=== PATIENT | female | born 1990 | race African-American/Black ===

== ENCOUNTER 2018-02-20 07:40 | Emergency (ER) | payer OTHER ==
[~2018-02-20] VITALS: Ht 157.5 cm; Wt 90.0 kg
[~2018-02-20 07:40] MED LIST: AMOXICILLIN500 MG OR; CLARITIN10 M2 OR; NO MEDS; TRIMOX500 MG PO
[2018-02-20 08:12] LABS: URINE BILIRUBIN - DIPSTICK NEGATIVE (NEGATIVE); URINE BLOOD DIPSTICK NEGATIVE (NEGATIVE); URINE COLOR YELLOW; URINE GLUCOSE - DIPSTICK NEGATIVE (NEGATIVE); URINE KETONE NEGATIVE (NEGATIVE); URINE LEUK ESTERASE NEGATIVE (NEGATIVE); URINE NITRITE - DIPSTICK NEGATIVE (Negative); URINE PROTEIN - DIPSTICK TRACE mg/dL (NEG-TRACE); URINE SPECIFIC GRAVITY >=1.030; URINE UROBILINOGEN - DIPSTICK 0.2 E.U./dL (0.2)
[2018-02-20 08:14] LABS: URINE CLARITY CLEAR
[2018-02-20 08:15] LABS: HEMATOCRIT 40.2 % (37.0-47.0); HEMOGLOBIN 12.8 g/dl (12.0-16.0); IMMATURE GRANULOCYTES 0.2 % (0.0-1.0); MEAN CELL VOLUME 82.9 fL CALC (80.0-100.0); MEAN CORPUSCULAR HGB 26.4 pG CALC (26.0-32.0); MEAN CORPUSCULAR HGB CONC 31.8 g/L CALC (32.0-36.0); NEUT# 1.98 thou/uL (2.00-7.15); RED BLOOD COUNT 4.85 mill/uL (4.20-5.60); RED CELL DISTRI WIDTH 13.9 % (11.5-15.5)
[2018-02-20 08:25] LABS: ALBUMIN 3.9 g/dL (3.2-5.0); ALKALINE PHOSPHATASE 57 u/l (38-126); ANION GAP 15 (6-22 (CALC)); BILIRUBIN, TOTAL 0.3 mg/dL (0.0-1.4); BUN 13 mg/dL (7-17); BUN/CREATININE RATIO 22 (12-20 (CALC)); CARBON DIOXIDE 23 mmol/l (22-30); CHLORIDE 108 mmol/l (95-108); CREATININE 0.6 mg/dL (0.5-1.0); GFR > 60 ML/MIN (>=60 (CALC)); GFR FOR AFR.AMER. > 60 ML/MIN (>=60 (CALC)); POTASSIUM 3.8 mmol/l (3.5-5.1); SGOT/AST 25 u/l (14-36); SGPT/ALT 33 u/l (9-52); SODIUM 142 mmol/l (137-146); TOTAL PROTEIN 7.1 g/dL (6.3-8.2)
[2018-02-20] MEDS ORDERED: LOMOTIL2.5 MG PO (08:38)
[2018-02-20] MEDS ORDERED: ZOFRAN4 MG/TAB PO (08:38)
[2018-02-20 09:25] VITALS: BP 122/71
== END 2018-02-20 09:33 | disposition home or self-care (01) | DRG 392 ==
LOC: ED 07:40
PROVIDERS: Emergency Medicine
DX: K52.9 Noninfective gastroenteritis and colitis, unspecified (principal); R10.9 Unspecified abdominal pain; R19.7 Diarrhea, unspecified; R11.2 Nausea with vomiting, unspecified

== ENCOUNTER 2018-09-22 17:45 | Emergency (ER) | payer SELFPAY ==
[~2018-09-22] VITALS: Ht 154.9 cm; Wt 84.1 kg
[~2018-09-22 17:45] MED LIST changes: +LOMOTIL2.5 MG PO; +ZOFRAN4 MG/TAB PO
[2018-09-22 20:29] LABS: URINE BILIRUBIN - DIPSTICK NEGATIVE (NEGATIVE); URINE BLOOD DIPSTICK LARGE (NEGATIVE); URINE CLARITY CLEAR; URINE COLOR YELLOW; URINE GLUCOSE - DIPSTICK NEGATIVE (NEGATIVE); URINE KETONE 15 mg/dL (NEGATIVE); URINE LEUK ESTERASE TRACE (Negative); URINE NITRITE - DIPSTICK NEGATIVE (Negative); URINE PROTEIN - DIPSTICK NEGATIVE (NEG-TRACE); URINE RBC TNTC RBC/hpf (0-5); URINE SPECIFIC GRAVITY >=1.030; URINE SQUAMOUS EPITHELIAL CELL FEW EPI/hpf (0-FEW); URINE UROBILINOGEN - DIPSTICK 0.2 E.U./dL (0.2)
[2018-09-22] MEDS ORDERED: AMOXICILLIN500 MG PO (21:38)
[2018-09-22 23:01] VITALS: BP 130/73
== END 2018-09-22 23:02 | disposition home or self-care (01) | DRG 153 ==
LOC: ED 17:45
PROVIDERS: Emergency Medicine
DX: J03.90 Acute tonsillitis, unspecified (principal); N39.0 Urinary tract infection, site not specified

== ENCOUNTER 2019-04-19 13:18 | Emergency (ER) | payer SELFPAY ==
[~2019-04-19] VITALS: Ht 154.9 cm; Wt 87.0 kg
[~2019-04-19 13:18] MED LIST changes: +AMOXICILLIN500 MG PO
[2019-04-19] MEDS ORDERED: AMOXICILLIN875 MG PO (13:47)
[2019-04-19 14:05] VITALS: BP 121/79
== END 2019-04-19 14:05 | disposition home or self-care (01) | DRG 153 ==
LOC: ED 13:18
DX: J02.9 Acute pharyngitis, unspecified (principal); R59.1 Generalized enlarged lymph nodes

== ENCOUNTER 2022-05-10 16:11 | Emergency (ER) | payer MEDICAID ==
[2022-05-10] VITALS (8 sets, daily range): BP systolic 129–170; BP diastolic 80–105
[~2022-05-10] VITALS: Ht 154.9 cm; Wt 86.0 kg
[~2022-05-10 16:11] MED LIST changes: +AMOXICILLIN875 MG PO
[2022-05-10] MEDS ORDERED: KEFLEX500 MG PO (18:33)
== END 2022-05-10 18:52 | disposition home or self-care (01) ==
LOC: ED 16:11
DX: J02.9 Acute pharyngitis, unspecified (principal)

== ENCOUNTER 2023-04-06 08:51 | Emergency (ER) | payer SELFPAY ==
[~2023-04-06] VITALS: Ht 154.9 cm; Wt 85.0 kg
[2023-04-06] VITALS (14 sets, daily range): BP systolic 132–156; BP diastolic 96–117
[~2023-04-06 08:51] MED LIST changes: +ACYCLOVIR400 MG PO; +HYDROCHLOROT25 MG PO; +KEFLEX500 MG PO
== END 2023-04-06 11:38 | disposition home or self-care (01) | DRG 125 ==
LOC: ED 08:51
DX: H10.33 Unspecified acute conjunctivitis, bilateral (principal); I10 Essential (primary) hypertension

== ENCOUNTER 2024-04-05 20:02 | Emergency (ER) | payer OTHER ==
[~2024-04-05] VITALS: Ht 154.9 cm; Wt 88.0 kg
[~2024-04-05 20:02] MED LIST changes: +FLEXERIL5 M1 PO; +K-TAB20 MEQ PO; +MACROBID100 M1 PO; +MOTRIN400 MG/TAB PO
[2024-04-05] MEDS ORDERED: SODIUM CHLORIDE 0.9% 1,000 ML IV STA (20:30)
[2024-04-05] MEDS ORDERED: ACETAMINOPHEN 500 MG TAB PO ONE (20:35)
[2024-04-05] MEDS ORDERED: KETOROLAC TROMETHAMINE 30 MG/ML SDV IV ONE (20:35)
[2024-04-05 21:38] LABS: BASO% 0.2 % (0-3); EOS% 1.1 % (0-8); HEMATOCRIT 38.9 % (37.0-47.0); HEMOGLOBIN 12.7 g/dl (12.0-16.0); IMMATURE GRANULOCYTES 0.1 % (0.0-5.0); LYMPH% 11.2 % (15-41); MEAN CELL VOLUME 82.1 fL CALC (80.0-100.0); MEAN CORPUSCULAR HGB 26.8 pG CALC (26.0-32.0); MEAN CORPUSCULAR HGB CONC 32.6 g/dL CAL (32.0-36.0); MONO% 8.2 % (2-13); NEUT# 9.95 thou/uL (2.00-7.15); NEUT% 79.2 % (42-76); RED BLOOD COUNT 4.74 mill/uL (4.20-5.60); RED CELL DISTRI WIDTH 14.1 % (11.5-15.5)
[2024-04-05 21:58] LABS: ALBUMIN 4.4 g/dL (3.2-5.0); BILIRUBIN, TOTAL 0.6 mg/dL (0.02-1.3); CREATININE 0.5 mg/dL (0.5-1.0); TOTAL PROTEIN 7.8 g/dL (6.3-8.2)
[2024-04-05 21:59] LABS: POTASSIUM 3.7 mmol/l (3.5-5.1)
[2024-04-05 22:00] LABS: URINE BILIRUBIN - DIPSTICK Negative (NEGATIVE); URINE BLOOD DIPSTICK Negative (NEGATIVE); URINE GLUCOSE - DIPSTICK Negative (NEGATIVE); URINE KETONE Trace mg/dL (NEGATIVE); URINE LEUK ESTERASE Negative (NEGATIVE); URINE NITRITE - DIPSTICK Negative (Negative); URINE PROTEIN - DIPSTICK Negative (NEG-TRACE); URINE SPECIFIC GRAVITY 1.025; URINE UROBILINOGEN - DIPSTICK 0.2 E.U./dL (0.2)
[2024-04-05 22:01] LABS: URINE COLOR Yellow
[2024-04-05 22:08] VITALS: BP 125/77
[2024-04-05 22:15] VITALS: BP 135/91
[2024-04-05 22:30] VITALS: BP 129/83
[2024-04-05 22:45] VITALS: BP 131/86
[2024-04-05 23:00] VITALS: BP 139/92
[2024-04-05 23:15] VITALS: BP 130/77
[2024-04-06] MEDS ORDERED: OB COMPLET2 PO (00:47)
[2024-04-06 01:10] VITALS: BP 130/77
== END 2024-04-06 01:10 | disposition home or self-care (01) | DRG 833 ==
LOC: ED 20:02
PROVIDERS: Family Medicine
DX: O26.891 Other specified pregnancy related conditions, first trimester (principal); R10.2 Pelvic and perineal pain; O10.911 Unspecified pre-existing hypertension complicating pregnancy, first trimester; Z3A.08 8 weeks gestation of pregnancy